=== PATIENT | female | born 1950 | race Caucasian/White ===

== ENCOUNTER → 2017-08-07 10:20 | Outpatient (CLI) | payer MEDICARE, OTHER ==
[2015-10-14 17:21] VITALS: BMI 37.4
[~2017-08-07 10:20] MED LIST: CENTRUM COMPLE1 EACH PO; DITROPAN X5 MG/BOTTL PO; FISH OIL 1,0001 CA1 PO; OXYBUTYNIN CHLOR5 MG PO; PERCOCET 10/3251 TA1 PO; PHENERGAN25 MG RC; PRILOSEC20 MG PO; TUMS500 MG PO; VIACTIVE PO; VITAMIN D250000 UNIT PO; ZOCOR40 MG PO; ZOFRAN ODT4 MG/UDTAB PO
== END | disposition home or self-care (01) ==
LOC: D.US 10:20
DX: R09.89 Other specified symptoms and signs involving the circulatory and respiratory systems (principal)

== ENCOUNTER → 2017-09-05 10:00 | Outpatient (CLI) | payer MEDICARE, OTHER ==
[2015-10-14 17:21] VITALS: BMI 37.4
--- NOTE | 2017-09-11 09:53 | EC ---
PATIENT:RAJENDRA HUNTER DATE OF SERVICE: 09/05/17 SEX: F MEDICAL RECORD: [id number] DATE OF : 48 LOCATION:D.[facility] AGE OF PATIENT: 67 ADMISSION DATE: 09/05/17 REFERRING PHYSICIAN: INTERPRETING PHYSICIAN: HARMONY DODGE MD ECHOCARDIOGRAM REPORT ECHO CHARGES 4 ECHO COMPLETE CLINICAL DIAGNOSIS: DYSPNEA, MURMUR ECHOCARDIOGRAPHIC MEASUREMENTS (adult normal given) AC root (d.<3.7cm) 2.8 cm LV Septum d (<1.2 cm> 1.0 cm Valve Excursion 1.6 cm LV Septum (systole) 1.4 cm Left Atria (s.<4.0cm> 3.6 cm LVPW d(<1.2cm) 1.4 cm RV (d.<2.3cm) 3.1 cm LVPW (sytole) 1.9 cm LV diastole(<5.6CM) 4.6 cm MV E-F(>70mm/sec) cm LV systole 2.5 cm LVOT Diameter 1.5 cm MV exc.(>10mm) 1.6 cm Est.ejection fraction (50-75%) % Pericardial Effusion N DOPPLER: LVIT cm/sec A 98.0 cm/sec E 85.0 cm/sec LA cm/sec RVSP 49 mmHg LVOT 135 cm/sec AOP1/2T m/s Asc. Ao 228 cm/sec RVOT 74 cm/sec RA cm/sec PA 167 cm/sec AV Gradient Peak 20.88mmHg AV Mean 10.73mmHg AV Area 1.0 cm MV Gradient Peak 4.82 mmHg MV Mean 1.81 mmHg MV Area cm COMMENTS: Mining Detail Draftsperson: Claudy BUCHANAN Wool Merchant: 4 Dr. Dodge TAPE# PACS DATE OF SERVICE: 09/05/2017 PROCEDURE: Transthoracic echocardiogram. FINDINGS: 1. The left ventricle is shown to have mild concentric left ventricular hypertrophy. Inflow characteristics are consistent with diastolic dysfunction. 2. Mitral valve appears to have mitral annular calcification appears to be redundant chordae with mild mitral regurgitation and in some views, possibly moderate mitral regurgitation. ECHOCARDIOGRAM REPORT [id number] RAJENDRA HUNTER 3. The tricuspid valve has mild tricuspid regurgitation. There is a mildly elevated right ventricular pressure at 40 mmHg. 4. Pericardium is normal. There is no pericardial effusion. 5. The pulmonic valve is normal. 6. The aortic valve has mild aortic sclerosis. Aortic valve is not seen very well on planimetry. CONCLUSIONS: The patient has mild left ventricular hypertrophy, preserved ejection fraction of 60%, evidence of diastolic dysfunction, evidence of mild aortic stenosis and sclerosis, and evidence of moderate mitral regurgitation with mildly elevated right ventricular systolic pressures. TRANSINT:[id number] Voice Confirmation ID: [id number] DOCUMENT ID: [id number] HARMONY DODGE MD at 0953 CC: [id number] DICTATION DATE: 09/08/17 1255 DIE MECHANIC: 09/08/17 1410 DEP CLI 09/05/17 [facility] [address] [place] [address]
== END | disposition home or self-care (01) ==
LOC: D.ECHO 10:00
DX: R06.00 Dyspnea, unspecified (principal); R09.89 Other specified symptoms and signs involving the circulatory and respiratory systems; R01.1 Cardiac murmur, unspecified; R53.83 Other fatigue; I10 Essential (primary) hypertension; E78.5 Hyperlipidemia, unspecified

== ENCOUNTER 2019-11-12 05:48 | Day surgery (SDC) | payer MEDICARE, OTHER ==
[~2019-11-12] VITALS: Ht 160 cm; Wt 86.2 kg
[~2019-11-12 05:48] MED LIST changes: +ASPIRIN EC81 M1 PO; +CELEBREX200 MG PO; +CENTRUM SILVER1 EAC3 PO; -DITROPAN X5 MG/BOTTL PO; +LIPITOR40 MG PO; +TUMERIC PO; +[UNRECOGNIZED DRUG - OTHER]
[2019-11-12 06:19] LABS: HEMATOCRIT 46.3 % (36.0-48.0); HEMOGLOBIN 15.8 g/dL (12-16); MCH 32.8 pg (26.0-34.0); MCHC 34.1 g/dL (31.0-37.0); MCV 96.3 fL (80.0-100.0); RBC 4.81 10x6/uL (4.00-5.40); RDW 12.3 % (11.5-14.5); WBC 9.4 10x3/uL (4.8-10.8)
[2019-11-12 07:23] VITALS: BP 181/75; Ht 160 cm; Wt 86.2 kg
--- NOTE | 2019-11-12 10:49 | OP ---
PATIENT NAME: RAJENDRA HUNTER MEDICAL RECORD: [id number] :48 LOCATION:D.OPS ADMISSION DATE: SURGEON: CLARENCE JOSÉ MD DATE OF OPERATION: 11/12/2019 SURGEON: Clarence José MD ANESTHESIA: TIVA by Genet Johnson CRNA. DIAGNOSIS: Urge urinary incontinence. PROCEDURES: Cystoscopy and intravesical Botox injection 100 units. FINDINGS: Single ureteral orifices bilaterally, no bladder tumors. BLOOD LOSS: None. CLINICAL HISTORY: This is a 69-year-old female with urge urinary incontinence. She tried oxybutynin, which affected her mentation. It gave her dry mouth also. She then tried Myrbetriq, which did not work. However, the Myrbetriq will cost her over 500 dollars per month and this is unaffordable. She comes now to have the intravesical Botox performed. She is allergic to LATEX. She was given Ancef physician relations specialist to the OR. DESCRIPTION OF PROCEDURE: The patient was given IV sedation. She was placed into the lithotomy position and prepped and draped. The 21-Armenian cystoscope with 30-degree lens was used for visualization. At 10 different locations, 1 mL of Botox solution was injected into the detrusor muscle. Each mL has 10 units of Botox dissolved in it. Thus, a total of 100 units of Botox was given to the patient cumulatively. The ureteral orifices in the trigonal area were spared the injection. The bladder was then emptied at the end of the procedure. I will see the patient in followup in 3-4 weeks' time at the [facility]. TRANSINT:[id number] Voice Confirmation ID: [id number] DOCUMENT ID: [id number] CLARENCE JOSÉ MD at 1049 CC: [id number] DICTATION DATE: 11/12/19 0935 PLATFORM POWER TECHNICIAN: 11/12/19 1047 [facility] 11/12/[address] [address]
== END 2019-11-12 10:10 | disposition home or self-care (01) ==
LOC: D.OPS 05:48 → D.PAN 07:55 → D.OPS 08:20 → D.PAN 08:20 → D.OPS 10:10
PROVIDERS: Anesthesiology; ATTEND Urology
DX: N39.41 Urge incontinence (principal); I10 Essential (primary) hypertension; E78.5 Hyperlipidemia, unspecified

== ENCOUNTER → 2021-03-23 10:52 | Outpatient (CLI) | payer MEDICARE, OTHER ==
[2020-12-03 08:32] VITALS: BMI 35.4
[~2021-03-23 10:52] MED LIST changes: +NORMODYNE / TR300 MG PO; +PLAVIX75 MG PO; +PRINIVIL20 MG PO
== END | disposition home or self-care (01) ==
LOC: D.HCCARDIO 10:52
PROVIDERS: ATTEND Internal Medicine Cardiovascular Disease
DX: I20.9 Angina pectoris, unspecified (principal)

== ENCOUNTER → 2021-04-15 20:13 | Outpatient (CLI) | payer MEDICARE, OTHER ==
[2020-12-03 08:32] VITALS: BMI 35.4
[2021-04-15 21:03] LABS: T4 THYROXINE 7.5 ug/dL (4.7-13.3); THYROID STIMULATING HORMONE 1.26 uIU/mL (0.36-3.74)
== END | disposition home or self-care (01) ==
LOC: D.LABREF 20:13
PROVIDERS: ATTEND Nurse Practitioner
DX: I10 Essential (primary) hypertension (principal)

== ENCOUNTER → 2021-05-07 08:48 | Outpatient (CLI) | payer MEDICARE, OTHER ==
[2020-12-03 08:32] VITALS: BMI 35.4
== END | disposition home or self-care (01) ==
LOC: D.ECHO 08:48
PROVIDERS: ATTEND Internal Medicine Cardiovascular Disease
DX: I10 Essential (primary) hypertension (principal)

== ENCOUNTER 2021-05-13 06:37 | Day surgery (SDC) | payer MEDICARE, OTHER ==
[~2021-05-13] VITALS: Ht 160 cm; Wt 90.2 kg
--- NOTE | ~2021-05-13 | HEMODYNAMI ---
PATIENT:RAJENDRA HUNTER MEDICAL RECORD: [id number] : 48 LOCATION:[facility] ADMISSION DATE: 05/13/21 Generatedon:18:39 Patient name: RAJENDRA HUNTER Patient #: [id number] SSN: [id number] : 1950 Date of study: 05/13/2021 Page: Of Hemodynamic Procedure Report Patient Data Patient Demographics Procedure consent was obtained First Name: RAJENDRA Gender: Female Last Name: DALE : 1950 Middle Initial: JOVANI Age: 71 year(s) Patient #: [id number] Race: SSN: [id number] Additional ID: [id number] Contact details [address]: [address] [place] [address] State: [place] City: [place] Zip code: [address] Past Medical History Performed procedures and imaging results Date Procedure Procedure Results Comments 03/23/2021 Stress testing Positive->Intermediate with SPECT MPI risk Allergies Allergen Reaction Date Comments Reported Other allergy 12/03/2020 LATEX Other allergy 05/13/2021 LATEX Admission Admission Data Admission Date: 05/13/2021 Admission Time: 6:37 Arrival Date: 05/13/2021 Arrival Time: 0:00 Admit Source: Other Insurance Payor: Medicare [facility] #: [id number] Height (in.): 63 BSA: 1.94 (m2) Height (cm.): 160.02 BMI: 35.78 (kg/m2) Weight (lbs.): 202 Weight (kg.): 91.63 Procedure Procedure Types Cath Procedure Diagnostic Procedure LHC LH w/Coronaries Sedation Charges Moderate Sedation 10-24 minutes Procedure Description Procedure Date Procedure Date: 05/13/2021 Procedure Start Time: 8:13 Procedure End Time: 8:33 Procedure Staff Name Function Ronny Weinberg MD Performing Physician Chris Verma RN Nurse Lurdes Mesa RT Monitor Emilee Sheriff RT Scrub Gio Marsh RN Nurse Procedure Data Cath Procedure Fluoroscopy Diagnostic fluoroscopy Total fluoroscopy Time: 2.5 time: 2.5 min min Diagnostic fluoroscopy Total fluoroscopy dose: 716 dose: 716 mGy mGy Contrast Material Contrast Material Type Amount (ml) Isovue 300 180 Entry Location Entry Primary Successful Side Size Upsize Upsize Entry Closure Succes sful Closure Location (Fr) 1 (Fr) 2 (Fr) Remarks Device Remarks Femoral Right 5 Fr Exoseal artery Estimated blood loss: 5 ml Diagnostic catheters Device Type Used For End Catheter Placement MULTIPACK JL 4.0 5Fr Left Coronary catheter Angiography MULTIPACK 3DRC 5Fr Right Coronary catheter Angiography MULTIPACK Pigtail 5 Fr LV Angiography catheter Procedure Complications No complications Procedure Medications Medication Administration Route Dosage Oxygen etCO2 Nasal cannula 2 l/min Lidocaine 2% added to field 20 Heparin Flush Bag added to field 2 bags (1000units/500ml NS) 0.9% NaCl I.V. 100 ml/hr Versed I.V. 1 mg Fentanyl I.V. 50 mcg Versed I.V. 1 mg Fentanyl I.V. 50 mcg Versed I.V. 1 mg Versed I.V. 1 mg Hemodynamics Rest BSA: 1.94 (m2) O2 Consumption: Estimated: 175.23 (ml/min) O2 Consumption indexed : Estimated:90.32 (ml/min/m) Heart Rate: 66 (bpm) Pressure Samples Time Site Value (mmHg) Purpose Heart Use Rate(bpm) 8:24 LV 154/15,51 Snapshot 69 8:25 AO 139/47(84) Pullback 76 8:25 LV 185/-7,14 Pullback 76 Gradients Valve Time Site 1 Site 2 Mean SEP/DFP Peak To Heart Use (mmHg) (sec/min) Peak Rate (mmHg) (bpm) Aortic 8:25 LV AO 42 29 46 76 185/-7,14 139/47(84) Calculations Valve P-P Mean Valve Index Valve Source Name Gradient Area Flow (cm2) Aortic 46 42 46 42 Snapshots Pre Cath Intra NCS Post Cath Vital Signs Time Heart Resp SPO2 etCO2 NIBP (mmHg) Rhythm Pain Sedation Rate (ipm) (%) (mmHg) Status Level (bpm) 8:03:04 65 15 100 44.2 168/65(116) NSR 0 (11) 10(A) , No pain 8:07:26 64 10 99 44.2 157/74(117) NSR 0 (11) 10(A) , No pain 8:12:47 64 18 99 34.4 148/60(92) NSR 0 (11) 9(A) , No pain 8:17:14 63 18 98 21.7 140/65(112) NSR 0 (11) 9(A) , No pain 8:21:38 78 17 99 34.4 139/61(108) NSR 0 (11) 9(A) , No pain 8:26:02 69 17 99 45 151/63(112) NSR 0 (11) 9(A) , No pain 8:30:28 64 23 99 44.2 165/67(136) NSR 0 (11) 10(A) , No pain Medications Time Medication Route Dose Verified Delivered Reason Notes Effe ctiveness by by 8:01:59 Oxygen etCO2 2 Ronny Buffie used for Nasal l/min Lenard Verma RN procedure cannula 8:02:06 Lidocaine 2% added 20ml Ronny Ronny for local to vial Lenard Weinberg MD anesthetic field 8:02:14 Heparin Flush added 2 Ronny Ronny used for Bag to bags Lenard Weinberg MD procedure (1000units/500ml field NS) 8:02:23 0.9% NaCl I.V. 100 Ronny Buffie Per ml/hr Lenard Verma RN physician 8:05:45 Versed I.V. 1 mg Ronny Buffie for Lenard Verma RN sedation 8:05:52 Fentanyl I.V. 50 Ronny Buffie for mcg Lenard Verma RN sedation 8:10:45 Versed I.V. 1 mg Ronny Buffie for Lenard Verma RN sedation 8:10:49 Fentanyl I.V. 50 Ronny Buffie for mcg Lenard Verma RN sedation 8:14:35 Versed I.V. 1 mg Ronny Buffie for Lenard Verma RN sedation 8:21:51 Versed I.V. 1 mg Ronny Buffie for Lenard Verma RN sedation Procedure Log Time Note 7:35:13 Informed consent obtained and on chart 7:35:32 Diagnostic Cath Status : Elective 7:35:40 Arrival Date: 05/13/2021 12:00:00 AM 7:35:41 Admit Source: Other 7:35:44 Insurance Payor : Medicare 7:36:06 Patient Height : 63 inches 7:36:09 Patient Weight : 202 lbs 7:37:27 Patient allergic to Other allergyLATEX 7:37:33 ACC Patient presents with Stable Angina CCS Anginal Class 2--Slight limitation of ordinary activity. 7:37:36 Procedure Status Elective Heart Cath (OP). 7:37:37 Time tracking: Regular hours (M-F 7:00 - 5:00) 7:37:41 Plan of Care:Hemodynamics will remain stable., Cardiac rhythm will remain stable., Comfort level will be maintained., Respiratory function will remain adequate., Patient/ family verbilizes understanding of procedure., Procedure tolerated without complication., Recovers from procedure without complications.. 7:37:54 H&P Date Dictated: 04/15/2021 Within 30 days and on chart.. 7:38:32 Alarms reviewed by R. N. 7:38:33 Sharps counted by scrub and verified by R.N. 7:40:45 Stress Test: yes; normal ? 7:50:28 Chris Verma RN sent for patient. Start room use. 8:01:42 Patient received from Pre/Post Procedure Room to CCL 2 Alert and oriented. Tansferred to table in Supine position. 8:01:43 Warm blankets applied, and rita hugger turned on for patient comfort. 8:01:44 Correct patient and procedure confirmed by team. 8:01:44 ECG and BP/O2 sat monitors applied to patient. 8:01:45 Vital chart was started 8:01:47 Baseline sample Acquired. 8:01:53 Rhythm: sinus rhythm 8:01:56 Full Disclosure recording started 8:01:57 Pre-procedure instructions explained to patient. 8:01:58 Pre-op teaching completed and patient verbalized understanding. 8:01:59 Oxygen 2 l/min etCO2 Nasal cannula was administered by Chris Verma RN; used for procedure; Verbal order read back and verified. 8:02:01 Patient NPO since Midnight. 8:02:03 Is the patient allergic to Iodine/contrast media? No. 8:02:04 Was the patient premedicated? Yes 8:02:05 Is patient on blood thinner?Yes 8:02:06 Lidocaine 2% 20ml vial added to field was administered by Ronny Weinberg MD; for local anesthetic; Verbal order read back and verified. 8:02:08 ACC The patient was administered the following blood thiners within the last 24 hours: ACCPlavix 8:02:10 Patient diabetic? No. 8:02:13 Previous problem with sedation/anesthesia? No ? 8:02:14 Heparin Flush Bag (1000units/500ml NS) 2 bags added to field was administered by Ronny Weinberg MD; used for procedure; Verbal order read back and verified. 8:02:15 Snore? Yes 8:02:18 Sleep apnea? No 8:02:19 Deviated septum? No 8:02:20 Opens mouth fully? Yes 8:02:22 Sticks out tongue? Yes 8:02:23 0.9% NaCl 100 ml/hr I.V. was administered by Chris Verma RN; Per physician; Verbal order read back and verified. 8:02:31 Airway obstruction? Yes CHILDHOOD ASTHMA 8:02:34 Dentures? No ? 8:02:38 Pre procedure: right dorsailis pedis pulse 2+ Normal; easily identifiable; not easily obliterated 8:02:39 Pre procedure: left dorsailis pedis pulse 2+ Normal; easily identifiable; not easily obliterated 8:02:41 Patient pain scale 0/10 ?. 8:02:46 IV patent on arrival in left forearm with 0.9% NaCl at [facility]. 8:02:49 Lab results completed and on chart. 8:02:56 Physician arrived 8:02:56 --------ALL STOP TIME OUT------ 8:02:56 Final Timeout: patient, procedure, and site verified with staff and physician. All members of the team are in agreement. 8:02:59 Right groin site verified by team. 8:03:03 Fire Safety Assessment: A--An alcohol-based skin anteseptic being used preoperatively., C--Open oxygen or nitrous oxide is being used., D--An ESU, laser, or fiber-optic light is being used. 8:03:08 Physical assessment completed. ASA score P 2 - A patient with mild systemic disease as per Ronny Weinberg MD. 8:05:45 Versed 1 mg I.V. was administered by Chris Verma RN; for sedation; Verbal order read back and verified. 8:05:52 Fentanyl 50 mcg I.V. was administered by Chris Verma RN; for sedation; Verbal order read back and verified. 8:07:29 2) 60-89 Mildly reduced kidney function, and other findings (as for stage 1) point to kidney disease. 8:07:53 Maximum allowable contrast dose (3.7 X eGFR X 0.75)180 ml. 8:07:57 Sedation plan: IV Moderate Sedation Medication:Versed, Fentanyl 8:08:02 Use device set Femoral Dx 8:08:03 ACIST Syringe (41171) opened to sterile field. 8:08:04 Bag Decanter (2002S) opened to sterile field. 8:08:04 Medline Cath Pack ([id number]) opened to sterile field. 8:08:05 ACIST Hand Control (85381) opened to sterile field. 8:08:05 ACIST Manifold (76176) opened to sterile field. 8:08:06 DIAGNOSTIC Multipack 5Fr catheter set ([id number]) opened to sterile field. 8:08:06 Tegaderm 4 x 4 (1626W) opened to sterile field. 8:08:08 SHEATH 5FR Pendleton (TBV477) opened to sterile field. 8:08:08 EMERALD Guide Wire (611-817) opened to sterile field. 8:10:45 Versed 1 mg I.V. was administered by Chris Verma RN; for sedation; Verbal order read back and verified. 8:10:49 Fentanyl 50 mcg I.V. was administered by Chris Verma RN; for sedation; Verbal order read back and verified. 8:13:45 Procedure started. 8:13:49 Local anesthetic to right femoral artery with Lidocaine 2% by Ronny Weinberg MD.INITIAL ACCESS ONLY 8:14:35 Versed 1 mg I.V. was administered by Chris Verma RN; for sedation; Verbal order read back and verified. 8:17:08 A 5 Fr sheath was inserted into the Right Femoral artery 8:17:14 A MULTIPACK JL 4.0 5Fr catheter was advanced over the wire and used for Left Coronary Angiography. 8:20:38 LCA angiography performed. 8:20:41 Injector settings: Ml/sec: 3, Volume: 6, 8:20:44 Catheter removed. 8:20:52 A MULTIPACK 3DRC 5Fr catheter was advanced over the wire and used for Right Coronary Angiography. 8:21:51 Versed 1 mg I.V. was administered by Chris Verma RN; for sedation; Verbal order read back and verified. 8:22:16 RCA angiography performed. 8:22:20 Injector settings: Ml/sec: 3, Volume: 6, 8:24:26 Catheter removed. 8:24:30 A MULTIPACK Pigtail 5 Fr catheter was advanced over the wire and used for LV Angiography. 8:24:40 LV hemodynamics recorded. 8:24:41 LV gram done using CARTER 8:24:43 Injector settings: Ml/sec: 5, Volume: 15, 8:24:55 EF : 55 % 8:25:51 Aortic Root visualized 8::56 Injector settings: Ml/sec: 10, Volume: 20, 8:29:07 Catheter removed. 8:29:25 EXOSEAL 5Fr (EX500) opened to sterile field. 8:29:32 Sheath removed intact; hemostasis achieved with Exoseal to the Right Femoral artery. 8:29:55 Procedure ended.(Physican Out) 8:32:03 Fluoroscopy time 02.50 minutes. 8:32:12 Fluoroscopy dose: 716 mGy 8:32:12 Flurop Dose total: 716 8:32:19 Dose Area Product 97341 mGy/cm. 8:32:23 Contrast amount:Isovue 300 180ml. 8:32:28 Maximum allowable dose exceeded? No. 8:32:33 Insertion/operative site no bleeding no hematoma. 8:32:35 Post-op/insertion site Right Femoral artery dressed using a 4 x 4 and Tegaderm. 8:32:39 Post right femoral artery:stable 8:32:40 Post Procedure Pulses reassessed and unchanged 8:32:43 Post procedure rhythm: unchanged. 8:32:46 Estimated blood loss: 5 ml 8:32:47 Post procedure instruction explained to patient.Patient verbalizes understanding. 8:32:47 Patient needs reinforcement of post procedure teaching. 8:33:13 Procedure type changed to Cath procedure, Diagnostic procedure, LHC, LHC w/Coronaries, Sedation Charges, Moderate Sedation 10-24 minutes 8:33:14 Procedure and supply charges have been captured, reviewed, submitted and are correct. 8:33:19 Procedure Complication : No complications 8:33:22 Vital chart was stopped 8:33:24 [facility] Findings: JUSTIN- will discuss options w/ pt 8:33:25 Operative report dictated upon procedure completion. 8:33:25 See physician's report for complete and final results. 8:33:27 Report given to Pre/Post Procedure Room. 8:33:30 Patient transfered to Pre/Post Procedure Room with Stretcher. 8:33:33 Procedure ended. 8:33:33 Full Disclosure recording stopped 8:33:39 End room use (Document Last) 8:37:41 End room use (Document Last) Device Usage Item Name Manufacture Quantity Catalog Hospital Part Current Minimal L ot# / Number Charge Number Stock Stock Serial# Code ACIST Acist 1 70262 653520 085497 448390 20 Syringe Medical (35613) Systems Inc Bag Microtek 1 244119 54094 725741 5 Decanter Medical Inc. () Medline Medline 1 [id number] 690950 64999 073566 5 Cath Pack ([id number]) ACIST Hand Acist 1 03386 637093 346266 549370 5 Control Medical (85927) Systems Inc ACIST Acist 1 77208 833852 954472 329933 5 Manifold Medical (89182) Systems Inc DIAGNOSTIC Cardinal 1 [id number] 873362 64201 066346 30 Multipack Health 5Fr catheter set (KK5051) Tegaderm 4 3M 1 1626W 477803 165496 117664 5 x 4 (1626W) SHEATH 5FR Terumo 1 ENV459 385778 591778 432693 5 Pendleton (FCD478) EMERALD Cardinal 1 502-455 067990 545631 149417 5 Guide Wire Health (502-455) MULTIPACK Cardinal 1 475763 5 JL 4.0 5Fr Health catheter MULTIPACK Cardinal 1 386711 5 3DRC 5Fr Health catheter MULTIPACK Cardinal 1 844898 5 Pigtail 5 Health Fr catheter EXOSEAL 5Fr Cardinal 1 EX500 741831 403842 063109 10 (EX500) Health Signature Audit [place] Stage Time Signature Unsigned Intra-Procedure 05/13/2021 Lurdes Mesa 8:37:41 AM RT(R) Intra-Procedure 05/13/2021 Gio Marsh RN 8:38:30 AM Intra-Procedure 05/13/2021 Ronny Weinberg MD 8:39:36 AM Signatures Performing Physician : Signature : Ronny Weinberg MD Date : Time : Nurse : Buffie Verma RN Signature : Date : Time : Monitor : Lurdes Moshe RT Signature : Date : Time : Nurse : Gio Maximo RN Signature : Date : Time : [address] [facility] [place] [address]
[2021-05-13] MEDS ORDERED: CLINDAMYCIN HC150 MG PO (07:08)
[2021-05-13 07:33] VITALS: BP 158/65; Ht 160 cm; Wt 90.2 kg
[2021-05-13 07:48] LABS: BASOPHILS 1.3 % (0-2); HEMATOCRIT 43.6 % (36.0-48.0); HEMOGLOBIN 14.8 g/dL (12-16); LYMPHOCYTES 20.1 % (15-50); MCH 32.2 pg (26.0-34.0); MCV 94.7 fL (80.0-100.0); MEAN PLATELET VOLUME 8.9 fL (7.4-10.4); MONOCYTES 8.9 % (2-11); NEUTROPHILS 63.7 % (40-80); PLATELET COUNT 228 10x3/uL (130-400); RBC 4.61 10x6/uL (4.00-5.40); WBC 8.2 10x3/uL (4.8-10.8)
[2021-05-13 07:53] LABS: ANION GAP 13.1 mmol/L (8-16); CALCIUM 9.2 mg/dL (8.5-10.1); CARBON DIOXIDE 26.9 mmol/L (21.0-32.0); CHOL - HDL RATIO 4.6 ratio (2.3-4.1); CREATININE - SERUM 0.9 mg/dL (0.6-1.3); LDL-HDL RATIO 2.7 ratio (1.5-3.5)
--- NOTE | 2021-05-13 08:45 | NUR ---
PT REC'D TO CATH RECOVERY ROOM 7 VIA STRETCHER. MONITORS ESTAB. AT BS. SEE LICENSED INSURANCE AGENT FLOWSHEETS. ALARMS ON AND C/L IN REACH.
--- NOTE | 2021-05-13 09:00 | NUR ---
PT RESTING QUIETLY, R GROIN EXOSEAL SITE SOFT, C/D/I, NO S/S BLEEDING OR HEMATOMA. R LEG/FOOT WARM WITH PALP PULSES AND CAP REFILL WNL. PT DENIES PAIN OR NEEDS. VSS. ALARMS ON AND C/L IN REACH.
--- NOTE | 2021-05-13 09:30 | NUR ---
R GROIN SITE SOFT, NO S/S BLEEDING OR HEMATOMA. R LEG/FOOT WARM WITH PALP PULSES AND CAP REFILL WNL. VSS. PT RESTING QUIETLY. DENIES PAIN OR NEEDS.
--- NOTE | 2021-05-13 09:45 | NUR ---
VSS. R GROIN SITE SOFT, NO S/S BLEEDING OR HEMATOMA. PULSES PALP. PT TOLERATING SIPS OF WATER. VSS. AT BS. ALARMS ON AND C/L IN REACH.
--- NOTE | 2021-05-13 09:55 | NUR ---
R GROIN SITE SOFT, C/D/I, NO S/S BLEEDING OR HEMATOMA. PULSES PALP. HOB ELEVATED. SANDWICH TRAY AND JELLO PROVIDED. VSS. C/L IN REACH.
--- NOTE | 2021-05-13 10:08 | NUR ---
DR. ROMO IN TO SEE PT, UPDATED HER AND HER .
--- NOTE | 2021-05-13 10:30 | NUR ---
R GROIN SITE SOFT, NO S/S BLEEDING OR HEMATOMA. R LEG/FOOT WARM WITH PALP PULSES AND CAP REFILL WNL. PT DENIES PAIN, TOLERATED DIET. VSS.
--- NOTE | 2021-05-13 10:45 | NUR ---
R GROIN SITE C/D/I, NO S/S BLEEDING, PULSES PALP. PIV D/C'D INTACT, DSG APPLIED. PT ALLOWED UP TO GET DRESSED AND GO TO BR INDEPENDENTLY.
--- NOTE | 2021-05-13 10:51 | NUR ---
ALL DISCHARGE INSTRUCTIONS REVIEWED WITH PT, INCLUDING RESTRICTIONS, MEDS AND F/U APPT. PT VERBALIZES UNDERSTANDING, OFFICE WILL CALL PT WHEN THEY SCHEDULE ESTEFANIA.
--- NOTE | 2021-05-13 10:56 | NUR ---
PT D/C'D VIA WC TO PRIVATE VEHICLE WITH ALL PAPERWORK AND BELONGINGS.
== END 2021-05-13 10:56 | disposition home or self-care (01) ==
LOC: D.CATH 06:37
PROVIDERS: ATTEND Internal Medicine Cardiovascular Disease
DX: I25.119 Atherosclerotic heart disease of native coronary artery with unspecified angina pectoris (principal); R06.09 Other forms of dyspnea; I35.0 Nonrheumatic aortic (valve) stenosis; I10 Essential (primary) hypertension; E78.5 Hyperlipidemia, unspecified; R94.31 Abnormal electrocardiogram [ECG] [EKG]; I65.29 Occlusion and stenosis of unspecified carotid artery

== ENCOUNTER 2021-05-25 11:46 | Day surgery (SDC) | payer MEDICARE, OTHER ==
[~2021-05-25] VITALS: Ht 160 cm; Wt 90.7 kg
--- NOTE | ~2021-05-25 | HEMODYNAMI ---
PATIENT:RAJENDRA HUNTER MEDICAL RECORD: [id number] : 48 LOCATION:[facility] ADMISSION DATE: 05/25/21 Generatedon:113:45 Patient name: RAJENDRA HUNTER Patient #: [id number] SSN: [id number] : 1950 Date of study: 05/25/2021 Page: Of Hemodynamic Procedure Report Patient Data Patient Demographics Procedure consent was obtained First Name: RAJENDRA Gender: Female Last Name: DALE : 1950 Middle Initial: JOVANI Age: 71 year(s) Patient #: [id number] Race: SSN: [id number] Additional ID: [id number] Contact details Address: [address] [place] [address] State: [place] City: [place] Zip code: [address] Past Medical History Allergies Allergen Reaction Date Comments Reported Other allergy 12/03/2020 LATEX Other allergy 05/13/2021 LATEX Other allergy 05/25/2021 latex Admission Admission Data Admission Date: 05/25/2021 Admission Time: 11:46 Arrival Date: 05/25/2021 Arrival Time: 0:00 Admit Source: Other Insurance Payor: Medicare [facility] #: [id number] Lab Results Lab Result Date: 05/25/2021 Lab Result Time: 0:00 Biochemistry Name Units Result Min Max BUN mg/dl 17 --(---*)-- 7 18 Creatinine mg/dl 0.9 --(-*--)-- 0.6 1.3 eGFR ml/min 64.04399 *-(----)-- 90 120 NONAFRICAN CBC Name Units Result Min Max Hematocrit % 42.5 --(*---)-- 42 54 Hemoglobin g/dl 14.5 --(*---)-- 13.5 17.5 Procedure Procedure Types Cath Procedure Diagnostic Procedure ESTEFANIA Procedure Description Procedure Date Procedure Date: 05/25/2021 Procedure Start Time: 0:00 Procedure Staff Name Function Srinivas Owens MD Performing Physician Emilee Sheriff RT Monitor Jarett Alonzo RN Nurse Nando Cline CRNA Additional personnel Kendy Wray Emergency Department Clinician Procedure Data Cath Procedure Estimated blood loss: 0 ml Procedure Complications No complications Procedure Medications Medication Administration Route Dosage 0.9% NaCl I.V. 100 ml/hr Oxygen etCO2 Nasal cannula 5 l/min Hurricaine Mallory P.O. 1 Sprays Refer to Anesthesia Notes for Sedation Medications Hemodynamics Rest HGB: 14.5 (g/dl) Heart Rate: 65 (bpm) Snapshots Pre Cath Intra NCS Post Cath Vital Signs Time Heart Resp SPO2 etCO2 NIBP (mmHg) Rhythm Pain Sedation Rate (ipm) (%) (mmHg) Status Level (bpm) 13:18:52 63 13 100 203/80(138) NSR 0 (11) 10(A) , No pain 13:23:22 67 11 100 198/84(126) NSR 0 (11) 10(A) , No pain 13:27:57 70 6 100 0 204/84(152) NSR 0 (11) 10(A) , No pain 13:34:11 76 13 98 40.6 182/79(133) NSR 0 (11) 8(A) , No pain 13:38:36 75 14 99 39.8 162/68(125) NSR 0 (11) 9(A) , No pain 13:41:52 73 19 99 34.5 164/68(117) NSR 0 (11) 9(A) , No pain Medications Time Medication Route Dose Verified Delivered Reason Notes Effecti veness by by 13:25:38 0.9% NaCl I.V. 100 Jarett Jarett Per ml/hr Cheri Alonzo physician RN RN 13:25:59 Oxygen etCO2 5 Jarett Jarett for low 02 Nasal l/min Cheri Alonzo sats cannula RN RN 13:26:17 Hurricaine P[address] 1 Jaertt Jarett for local Mallory Sprays Cheri Alonzo anesthetic RN RN 13:28:34 Refer to Jarett Jarett for Anesthesia Cheri Alonzo sedation Notes for RN RN Sedation Medications Procedure Log Time Note 12:50:36 Informed consent obtained and on chart 12:50:46 Diagnostic Cath Status : Elective 12:51:58 Patient allergic to Other allergylatex 12:52:27 Arrival Date: 05/25/2021 12:00:00 AM 12:52:31 Admit Source: Other 12:52:37 Insurance Payor : Medicare 13:09:27 Jarett Alonzo RN sent for patient. Start room use. 13:12:45 ACC Patient presents with Stable Angina CCS Anginal Class 2--Slight limitation of ordinary activity. 13:12:49 Procedure Status ESTEFANIA. 13:12:51 Time tracking: Regular hours (M-F 7:00 - 5:00) 13:12:56 Plan of Care:Hemodynamics will remain stable., Cardiac rhythm will remain stable., Comfort level will be maintained., Respiratory function will remain adequate., Patient/ family verbilizes understanding of procedure., Procedure tolerated without complication., Recovers from procedure without complications.. 13:13:01 Patient received from Pre/Post Procedure Room to CCL 3 Alert and oriented. Tansferred to table in Supine position. 13:13:03 Warm blankets applied, and rita hugger turned on for patient comfort. 13:13:03 Correct patient and procedure confirmed by team. 13:13:04 ECG and BP/O2 sat monitors applied to patient. 13:13:05 Full Disclosure recording started 13:13:07 Pre-procedure instructions explained to patient. 13:13:08 Pre-op teaching completed and patient verbalized understanding. 13:13:11 Family in waiting room. 13:13:12 Patient NPO since Midnight. 13:16:18 Vital chart was started 13:16:26 Is the patient allergic to Iodine/contrast media? No. 13:16:29 Was the patient premedicated? Yes 13:16:31 Is patient on blood thinner?Yes 13:17:04 ACC The patient was administered the following blood thiners within the last 24 hours: ACCPlavix 13:17:06 Patient diabetic? No. 13:17:07 If diabetic: On Metformin? N/A 13:17:09 Patient not . Patient is over age 55. 13:17:10 ----Pre-sedation anethsthesia assessment.---- 13:17:12 Previous problem with sedation/anesthesia? No ? 13:17:13 Snore? Yes 13:17:15 Sleep apnea? Unknown 13:17:16 Deviated septum? No 13:17:17 Opens mouth fully? Yes 13:17:19 Sticks out tongue? Yes 13:17:21 Airway obstruction? No ? 13:17:23 Dentures? No ? 13:17:28 Patient pain scale 0/10 ?. 13:17:33 IV patent on arrival in left antecubital with 0.9% NaCl at [facility]. 13:18:21 Lab Result : Hemoglobin 14.5 g/dl 13:18:21 Lab Result : Hematocrit 42.5 % 13:18:26 Lab results completed and on chart. 13:18:30 Stress Test: no; N/A ? 13:18:32 Alarms reviewed by R. N. 13:18:33 Sharps counted by scrub and verified by R.N. 13:18:36 Baseline sample Acquired. 13:18:43 Rhythm: sinus rhythm 13:25:16 Lab Result : eGFR NONAFRICAN 64.97379 ml/min 13:25:16 Lab Result : Creatinine 0.9 mg/dl 13:25:16 Lab Result : BUN 17 mg/dl 13:25:20 Nando Cline CRNA present and monitoring patient for TIVA. 13:25:24 --------ALL STOP TIME OUT------ 13:25:24 Final Timeout: patient, procedure, and site verified with staff and physician. All members of the team are in agreement. 13:25:30 Kendy Wray Sharepoint Application Developer present for ESTEFANIA. 13:25:30 Fire Safety Assessment: A--An alcohol-based skin anteseptic being used preoperatively., C--Open oxygen or nitrous oxide is being used., D--An ESU, laser, or fiber-optic light is being used. 13:25:33 Physical assessment completed. ASA score P 2 - A patient with mild systemic disease as per Srinivas Owens MD. 13:25:38 0.9% NaCl 100 ml/hr I.V. was administered by Jarett Alonzo RN; Per physician; Verbal order read back and verified. 13:25:41 2) 60-89 Mildly reduced kidney function, and other findings (as for stage 1) point to kidney disease. 13:25:46 Sedation plan: TIVA Medication:Propofol 13:25:51 ESTEFANIA 13:25:59 Oxygen 5 l/min etCO2 Nasal cannula was administered by Jarett Alonzo RN; for low 02 sats; Verbal order read back and verified. 13:26:17 Hurricaine Mallory 1 Sprays P.O. was administered by Jarett Alonzo RN; for local anesthetic; Verbal order read back and verified. 13:28:34 Refer to Anesthesia Notes for Sedation Medications was administered by Jarett Alonzo RN; for sedation; Verbal order read back and verified. 13:28:48 ESTEFANIA started. 13:35:42 ESTEFANIA completed. 13:36:13 Procedure ended.(Physican Out) 13:36:56 Post Procedure Pulses reassessed and unchanged 13:37:02 Post procedure rhythm: unchanged. 13:37:05 Estimated blood loss: 0 ml 13:37:07 Post procedure instruction explained to patient.Patient verbalizes understanding. 13:37:07 Patient needs reinforcement of post procedure teaching. 13:37:25 Procedure and supply charges have been captured, reviewed, submitted and are correct. 13:37:29 Procedure Complication : No complications 13:37:47 ESTEFANIA Findings: other (see MD operative note) 13:37:50 See physician's report for complete and final results. 13:37:52 Operative report dictated upon procedure completion. 13:37:54 Report given to Pre/Post Procedure Room. 13:37:57 Patient transfered to Pre/Post Procedure Room with Stretcher. 13:38:03 End room use (Document Last) 13:39:21 End room use (Document Last) 13:40:32 End room use (Document Last) 13:45:55 Vital chart was stopped Signature Audit [place] Stage Time Signature Unsigned Intra-Procedure 05/25/2021 Emilee Sheriff 1:39:21 PM RT(R) Intra-Procedure 05/25/2021 Jarett 1:40:32 PM Cheri LE Intra-Procedure 05/25/2021 Srinivas Amador 1:45:52 PM Serjio [id number] [place] [address]
[~2021-05-25 11:46] MED LIST changes: +CLINDAMYCIN HC150 MG PO
[2021-05-25 12:55] LABS: BASOPHILS 1.2 % (0-2); EOSINOPHILS 7.6 % (0-7); HEMATOCRIT 42.5 % (36.0-48.0); HEMOGLOBIN 14.5 g/dL (12-16); LYMPHOCYTES 23.6 % (15-50); MCH 32.2 pg (26.0-34.0); MCHC 34.2 g/dL (31.0-37.0); MCV 94.3 fL (80.0-100.0); MEAN PLATELET VOLUME 8.2 fL (7.4-10.4); MONOCYTES 7.9 % (2-11); NEUTROPHILS 59.7 % (40-80); PLATELET COUNT 234 10x3/uL (130-400); RBC 4.51 10x6/uL (4.00-5.40); WBC 8.4 10x3/uL (4.8-10.8)
[2021-05-25 12:57] VITALS: BP 166/58; Ht 160 cm; Wt 90.7 kg
[2021-05-25 13:22] LABS: ANION GAP 13.8 mmol/L (8-16); CALCIUM 9.4 mg/dL (8.5-10.1); CARBON DIOXIDE 27.1 mmol/L (21.0-32.0); CREATININE - SERUM 0.9 mg/dL (0.6-1.3); POTASSIUM - SERUM 3.9 mmol/L (3.5-5.1)
--- NOTE | 2021-05-25 13:52 | NUR ---
ARRIVES TO ROOM 6 VIA STRETCHER FROM ESTEFANIA. SEE CLIENT SERVICE ASSOCIATE. PLACED ON MONITORS AND ALARMS ON, IV INFUSING PER ORDERS, CALL LIGHT WITHIN REACH , SPOUSE AT BEDSIDE, DR THAKKAR TO BEDSIDE TO REVEIEW TEST WITH PT AND SPOUSE
--- NOTE | 2021-05-25 14:10 | NUR ---
RESTING QUIETLY , AWAKE AND ALERT, DENIES PAIN OR NEEDS, VSS, SB NO ECTOPY, SEMI FOWLERS POSITION, IV INFUSING PER ORDERS, SPOUSE AT BEDSIDE, CALL LIGHT WITH IN REACH
--- NOTE | 2021-05-25 14:30 | NUR ---
VISITING WITH SPOUSE, VSS, SB PER MONITOR, SIPS OF WATER GIVEN, DENIES PAIN OR NEEDS, IV INFUSING PER ORDERS, CALL LIGHT WITHIN REACH
--- NOTE | 2021-05-25 14:45 | NUR ---
PT DISCHARGE TEACHING STARTED AND COMPLETED, PT AND SPOUSE VERBALIZE UNDERSTANDING, PT HAS NO PAIN OR NEEDS AT THIS TIME, 22G IV REMOVED CATHETER INTACTH DRESSING APPLIED. PT DRESSED WITH ASSSISTANCE FROM SPOUSE AMBULATES TO BATHROOM VOIDS WITHOUT DIFFICULTY
--- NOTE | 2021-05-25 15:00 | NUR ---
PT DISCHARGED PER ORDERS, TAKEN TO CAR VIA WHEELCHAIR. PT HAS NO QUESTIONS OR CONCERNS AT THIS TIME
--- NOTE | 2021-05-27 08:29 | TEE ---
PATIENT:RAJENDRA HUNTER MEDICAL RECORD: [id number] LOCATION:D.[facility] AGE OF PATIENT: 71 ADMISSION DATE: 05/25/21 SEX: F REFERRING PHYSICIAN: INTERPRETING PHYSICIAN: NISH HOLLOWAY MD TRANSESOPHAGEAL ECHOCARDIOGRAM Date: 05/25/21 ESTEFANIA CHARGE Y INDICATIONS: AV STENOSIS PREMEDICATIONS: PATIENT'S RESPONSE PROCEDURE DOPPLER MEASUREMENTS: LVIT LA PA RA LVOT RVOT Asc. Ao AV Gradient Peak AV Mean AV Area MV Gradient Peak MV Mean MV Area INTERPRETATION: Doppler: 2-D: COLOR FLOW DOPPLER NORMAL SALINE STUDY: MISCELLANOUS: DIAGNOSIS: PLAN: Restaurant Hospitality Manager:3 Dr. Rojas Electronic Warfare Linguist: Kraig GAMING COMMENTS: DATE OF SERVICE: 05/25/2021 PROCEDURE: Transesophageal note. DESCRIPTION OF PROCEDURE: After general sedation via TIVA via anesthesia, transesophageal Omniplane probe was placed into the distal esophagus and proximal stomach without difficulty. FINDINGS: As follows, LVH present. LV internal dimensions normal. Wall motion TRANSESOPHAGEAL ECHOCARDIOGRAM REPORT [id number] INDIGO [place] normal. EF is greater than or equal to 55%. Aortic valve is calcified with restriction of leaflet motion. We were able to planimetry the aortic valve in the short axis view, a valve area of approximately 0.6 consistent with critical . Left atrium appears dilated. Left atrial appendage appears dilated with good contractility. Mitral valve shows no prolapse, good valve excursion. Mild MR. Right-sided chambers appear upper limits of normal to mildly dilated. Mild TR by color flow imaging. At the end of the procedure, the transesophageal Omniplane probe was turned posteriorly and this showed minimal atherosclerotic debris in the descending aorta. During the procedure, the patient was monitored continuously with pulse oximetry, telemetry, noninvasive blood pressure monitoring. TRANSINT:[id number] Voice Confirmation ID: [id number] DOCUMENT ID: [id number] at 0829 CC: [id number] DICTATION DATE: 05/25/21 1339 EXCEL EXPERT: 05/26/21 0115 [facility] 05/25/21 [facility] [address] [place] [address]
--- NOTE | 2021-05-27 08:29 | HP ---
PATIENT: RAJENDRA HUNTER MEDICAL RECORD: [id number] ACCOUNT: [id number] LOCATION:[facility] : 48 ADMISSION DATE: 05/25/21 PCP: KAN KURTZ MD HISTORY AND PHYSICAL EXAMINATION UPDATED HISTORY AND PHYSICAL HISTORY OF PRESENT ILLNESS: A 71-year-old female with history of aortic stenosis. We are performing ESTEFANIA to see planimeter valve area as well as assess LV systolic function. PAST MEDICAL HISTORY: Includes; 1. History of hypertension. 2. Hyperlipidemia. 3. Aortic stenosis. PHYSICAL EXAMINATION: GENERAL: No acute distress, appears stated age. HEENT: Normocephalic, atraumatic. NECK: Probable radiation of aortic murmur into the carotids. HEART: Regular, II-III/ systolic ejection murmur. LUNGS: Good air excursion. ABDOMEN: Soft and nontender. EXTREMITIES: Pulses 2+. No edema. IMPRESSION: Critical aortic stenosis. PLAN: We will plan transesophageal to help assess valve area as well as anatomy. TRANSINT:[id number] Voice Confirmation ID: [id number] DOCUMENT ID: [id number] NISH HOLLOWAY MD at 0829 CC: [id number] DICTATION DATE: 05/25/21 1341 ROCK LATHER: 05/25/21 1424 [facility] 05/25/21 [id number] [place] [address]
== END 2021-05-25 15:00 | disposition home or self-care (01) ==
LOC: D.CATH 11:46
PROVIDERS: ATTEND Internal Medicine Interventional Cardiology
DX: I10 Essential (primary) hypertension (principal); E78.5 Hyperlipidemia, unspecified; I35.0 Nonrheumatic aortic (valve) stenosis